=== PATIENT | male | born 1980 | race Two or more races ===

== ENCOUNTER 2023-10-16 19:26 | Inpatient (IN) | payer OTHER, SELFPAY ==
--- NOTE | 2023-10-16 19:29 | ECG_ITS ---
Test Reason : AFIBB Blood Pressure : / mmHG Vent. Rate : 123 BPM Atrial Rate : 000 BPM P-R Int : 000 ms QRS Dur : 080 ms QT Int : 296 ms P-R-T Axes : 000 027 125 degrees QTc Int : 423 ms Atrial fibrillation with rapid ventricular response Nonspecific T wave abnormality Abnormal ECG No previous ECGs available Referred By: Jesika Zavala Electronically Signed By:Chacho Anthony
[2023-10-16 20:09] VITALS: BP 126/77; PULSE 165; RESP 19; O2SAT 100; BMI 27.0
--- NOTE | 2023-10-16 20:17 | ECG_ITS ---
Test Reason : AFIB Blood Pressure : / mmHG Vent. Rate : 135 BPM Atrial Rate : 135 BPM P-R Int : 148 ms QRS Dur : 092 ms QT Int : 258 ms P-R-T Axes : 000 037 246 degrees QTc Int : 387 ms Afib with RVR Nonspecific T wave abnormality Abnormal ECG No previous ECGs available Referred By: Jesika Zavala Electronically Signed By:Chacho Anthony
--- NOTE | 2023-10-16 20:19 | ED_ITS ---
HPI - General Adult General Chief complaint: Arrhythmia/Palpitations Stated complaint: afib Time Seen by Provider: 10/16/23 20:09 Source: patient Mode of arrival: ambulatory Limitations: no limitations History of Present Illness HPI narrative: Patient comes to the emergency room complaining of palpitations, mild shortness of breath with ambulation. Patient states that for the last 20 years he has had intermittent atrial fibrillation. Patient does not take any medication. Patient denies any chest pain. Patient states that approximately 12 hours ago while he was driving, he started having palpitations. Patient states he was hoping they would go away but they continued throughout the day. Related Data Allergies Allergy/AdvReac Type Severity Reaction Status Date / Time No Known Allergies Allergy Verified 10/16/23 20:10 Review of Systems 2 Review of Systems: Constitutional : No Weight loss, No Fever, No Chills, No Night Sweats, No Fatigue, No Malaise ENT/Mouth : No Hearing loss, No Ear Pain, No Nasal Congestion, No Sinus Pain, No Hoarseness, No sore throat, No Rhinorrhea, No Swallowing Difficulty Eyes: No Eye Pain, No Swelling, No Redness, No Foreign Body, No Discharge, No Vision Changes Cardiovascular : No Chest Pain, complaining palpitations, mild shortness of breath Respiratory : No Cough, No Sputum, No Wheezing, No Smoke Exposure, No Dyspnea Gastrointestinal : No Nausea, No Vomiting, No Diarrhea, No Constipation, No abdominal Pain, No Hematochezia, No Melena Genitourinary : no irregular bleeding, No Dysuria, No Urinary Frequency, No Hematuria, No Urinary Incontinence, No Urgency, No Flank Pain, No Urinary Flow Changes, No Hesitancy Musculoskeletal : No joint pain, No Myalgias, No Joint Swelling Skin : No Skin Lesions, No rash Neuro : No Weakness, No Numbness, No Paresthesias, No Loss of Consciousness, No Dizziness, No Headache Psych : No Anxiety/Panic, No Depression, No SI/HI/AH/VH, No Social Issues, Heme/Lymph: No Bruising, No Bleeding,No Lymphadenopathy Endocrine : No Polyuria, No Polydipsia, No Temperature Intolerance [facility] Past Medical History Medical History (Updated 10/17/23 @ 00:49 by Jesika Zavala MD) Atrial fibrillation with RVR Social History Social History Alcohol intake: current Alcohol intake frequency: holidays/special occasions only Smoked in Last 30 Days: No Use of substances other than those prescribed or required for medical reasons: Yes Substance Use Type: Marijuana Substance Use Frequency: Occasionally Advance Directives: No Advance Directives Information Provided: Yes Do you have a plan to hurt others: No Plan Physical Exam ED Vital Signs: Vital Signs - 24 hr 10/16/23 20:09 10/16/23 20:22 10/16/23 20:26 Temperature Pulse Rate 165 H 135 H Pulse Rate [Monitor] 116 H Respiratory Rate 19 Blood Pressure 126/77 115/53 L Pulse Oximetry 100 Oxygen Delivery Method Room Air 10/16/23 20:26 10/16/23 22:24 10/16/23 22:32 Temperature 98.2 F 97.9 F Pulse Rate 112 H 119 H 74 Pulse Rate [Monitor] Respiratory Rate 10 L 12 Blood Pressure 122/57 L 103/66 98/60 Pulse Oximetry 95 96 Oxygen Delivery Method Room Air Room Air 10/17/23 00:28 Temperature Pulse Rate 94 Pulse Rate [Monitor] Respiratory Rate Blood Pressure 106/67 Pulse Oximetry Oxygen Delivery Method BMI result Body Mass Index 27.0 Const Other: Appearance: Alert. Oriented X3. No acute distress. Eyes: Pupils equal, round and reactive to light. ENT: Pharynx normal. Neck: Normal inspection. Neck supple. No lymph nodes noted. No crepitus CVS: Irregularly irregular heart rate in the 130s to 140s Respiratory: No respiratory distress. Breath sounds normal. No Wheezing. No rales Abdomen: Soft and nontender. No rigidity. No distention. Skin: Skin warm and dry. Normal skin color. Normal skin turgor. Extremities: No lower extremity edema. No Lacerations. No Rash Neuro: Oriented X 3. No motor deficit. No sensory deficit. Moving all extremities. No slurred speech. CN 2 through 12 grossly intact Psych: calm, cooperative, normal affect Medications Administered Generic Name Dose Route Start Last Admin Trade Name Freq PRN Reason Stop Dose Admin Diltiazem HCl 125 mg/ Sodium 125 mls @ 0 mls/hr 10/17/23 00:15 10/17/23 00:28 Chloride IVCONT 10 mg/hr .Q0M ERICA 10 mls/hr Administration Protocol Per Protocol Discontinued Medications Generic Name Dose Route Start Last Admin Trade Name Freq PRN Reason Stop Dose Admin Diltiazem HCl 10 mg 10/16/23 20:18 10/16/23 20:22 Diltiazem Hcl 50 Mg/10 Ml Vial IVPUSH 10/16/23 20:19 10 mg STAT STA Administration Diltiazem HCl 10 mg 10/16/23 21:50 10/16/23 22:24 Diltiazem Hcl 50 Mg/10 Ml Vial IVPUSH 10/16/23 21:51 10 mg STAT STA Administration Medical Decision Making Medical Decision Making MDM Narrative: - my interpretation of EKG: Atrial fibrillation with RVR, heart rate 123, no ST segment depression or elevation, no T-wave inversion, QTC 423 - my interpretation of labs: Hematology and chemistry within normal limits, troponin negative - patient was given a dose of Cardizem 10 mg push. Patient's heart rate improved from 130 to 90s. Patient asymptomatic, patient was ambulated in the ED, heart rate increased to 150. - Patient was given a 2nd bolus of Cardizem push. Again, attempted to ambulate the patient, heart rate increased to the 150s. D - current heart rate 150, patient was started on a Cardizem drip. Patient denies chest pain or shortness of breath. - I discussed the patient with Dr. Jimenes, patient being admitted. Patient agrees with plan - patient's [id number] 2 score is 0 Differential Diagnosis Differential Diagnoses: The differential diagnosis associated with the presentation includes ( atrial fibrillation, atrial flutter, SVT) Admission/Observation Consideration of admission/observation: Escalation of care including admission/observation considered Consult Healthcare Provider Management of the patient was discussed with: Hospitalist Lab Data MDM Lab Attestation statement: I reviewed the patient's lab results. 10/16/23 20:17 10/16/23 20:17 Labs: Lab Results 10/16/23 Range/Units 20:17 WBC 10.4 (4.8-10.8) X10*3/uL RBC 4.88 (4.60-5.80) X10*6/uL Hgb 14.3 (14.0-18.0) g/dl Hct 42.5 (42.0-52.0) % MCV 87.1 (80.0-98.0) fL MCH 29.3 (27.0-33.0) pg MCHC 33.6 (31.0-36.0) g/dl RDW 12.9 (11.0-16.0) % Plt Count 283 (160-400) X10*3/uL MPV 9.7 (9.4-12.4) fL Immature Gran % (Auto) 1.3 H (0.0-0.4) % Neut % (Auto) 61.7 (45-73) % Lymph % (Auto) 28.7 (20-40) % [place] % (Auto) 6.2 (2-11) % Eos % (Auto) 1.6 (0-4) % Baso % (Auto) 0.5 (0-2) % Lymph # (Auto) 3.0 (1.2-4.9) X10*3/uL [place] # (Auto) 0.6 (0.1-1.2) X10*3/uL Eos # (Auto) 0.2 (0.0-0.4) X10*3/uL Baso # (Auto) 0.1 (0.0-0.2) X10*3/uL Abs Immat Gran (auto) 0.14 H (0.00-0.03) X10*3/uL Absolute Neuts (auto) 6.4 (2.0-8.3) x10*3/uL Absolute Nucleated RBC 0.000 (0.0-0.012) X10*3/uL Nucleated RBC % (auto) 0.0 (0.0-0.2) /100WBC PT 11.8 (11.1-13.3) SEC INR 1.0 (0.9-1.1) Sodium 144 (135-145) mmol/L Potassium 3.6 (3.3-5.1) mmol/L Chloride 106 (96-108) mmol/L Carbon Dioxide 26 (22-29) mmol/L Anion Gap 16 (12-20) BUN 15 (9-16) mg/dL Creatinine 0.86 (0.5-1.4) mg/dL Estim Creat Clear Calc 127.7 Estimated GFR > 60 Random Glucose 82 (60-115) mg/dL Calcium 10.0 (8.4-10.2) mg/dL Total Bilirubin 0.2 (0.0-1.0) mg/dL AST 33 (5-37) U/L ALT 39 (0-40) U/L Alkaline Phosphatase 49 (39-117) U/L Troponin I High Sens 22.6 (<3.5-35.0) ng/L Total Protein 7.4 (6.5-8.0) g/dL Albumin 4.5 (3.5-5.0) g/dL Independent Interpretation I performed an independent interpretation of an: EKG Critical Care Time Critical Care Time Critical Care Time: Yes Total Critical Care Time: 75 Attestation: I have personally provided critical care time. Time includes review of lab data, radiology results, discussion with consultants, and monitoring for potential decompensation. Intervention performed as documented. Discharge Plan Discharge Clinical Impression: Atrial fibrillation with RVR Patient Disposition: Admitted As Inpatient Print Language: Turkmen
[2023-10-16 20:20] LABS: MANUAL DIFF FLAG NO
[2023-10-16 20:21] LABS: Basophils Absolute Auto 0.1 X10*3/uL (0.0-0.2); Basophils Percent Auto 0.5 % (0-2); Eosinophils Absolute Auto 0.2 X10*3/uL (0.0-0.4); Eosinophils Percent Auto 1.6 % (0-4); Hematocrit 42.5 % (42.0-52.0); Hemoglobin 14.3 g/dl (14.0-18.0); Imm Gran Abs Auto 0.14 X10*3/uL (0.00-0.03); Imm Gran Pct Auto 1.3 % (0.0-0.4); Lymphocytes Percent Auto 28.7 % (20-40); Mean Corpuscular HGB Conc 33.6 g/dl (31.0-36.0); Mean Corpuscular Hemoglobin 29.3 pg (27.0-33.0); Mean Corpuscular Volume 87.1 fL (80.0-98.0); Mean Platelet Volume 9.7 fL (9.4-12.4); Monocytes Absolute Auto 0.6 X10*3/uL (0.1-1.2); Monocytes Percent Auto 6.2 % (2-11); Neutrophils Absolute Auto 6.4 x10*3/uL (2.0-8.3); Neutrophils Percent Auto 61.7 % (45-73); Platelet Count 283 X10*3/uL (160-400); Red Blood Count 4.88 X10*6/uL (4.60-5.80); Red Cell Distribution Width 12.9 % (11.0-16.0); White Blood Count 10.4 X10*3/uL (4.8-10.8)
[2023-10-16 20:22] VITALS: BP 115/53; PULSE 135
[2023-10-16] MEDS: dilTIAZem HCL 50 MG/10 ML VIAL 10 MG IVPUSH ×2 (20:22→22:24)
[2023-10-16 20:26] VITALS: BP 122/57; PULSE 112; PULSE 116; RESP 10; TEMP 36.8; O2SAT 95
[2023-10-16 20:29] LABS: Prothrombin Time 11.8 SEC (11.1-13.3)
[2023-10-16 20:38] LABS: Alanine Aminotransferase 39 U/L (0-40); Albumin Level 4.5 g/dL (3.5-5.0); Alkaline Phosphatase 49 U/L (39-117); Anion Gap 16 (12-20); Aspartate Amino Transferase 33 U/L (5-37); Bilirubin Total 0.2 mg/dL (0.0-1.0); Blood Urea Nitrogen 15 mg/dL (9-16); Carbon Dioxide 26 mmol/L (22-29); Chloride 106 mmol/L (96-108); Creatinine Clr Calc Pharmacy 127.7; Estimated Glomerular Filt Rate > 60; Glucose Random 82 mg/dL (60-115); Potassium 3.6 mmol/L (3.3-5.1); Sodium 144 mmol/L (135-145); Total Protein 7.4 g/dL (6.5-8.0)
[2023-10-16 20:45] LABS: Troponin-I High Sensitivity 22.6 ng/L (<3.5-35.0)
[2023-10-16 22:24] VITALS: BP 103/66; PULSE 119
[2023-10-16 22:32] VITALS: BP 98/60; PULSE 74; RESP 12; TEMP 36.6; O2SAT 96
[2023-10-17] VITALS (9 sets, daily range): BP systolic 104–111; BP diastolic 65–71; PULSE 77–106; RESP 12–16; TEMP 35.5–36.9; O2SAT 95–99
--- NOTE | 2023-10-17 00:10 | P.HPHOSP_ITS ---
History of Present Illness Date of Service: 10/17/23 Chief Complaint: Palpitations This is a 43-year-old male with pertinent history of paroxysmal atrial fibrillation not on anticoagulation who presents to the emergency department for evaluation of palpitations. Patient states he started having palpitations 1 day prior to presentation while he was driving. It lasted for about 12 hours and was constant. Patient states he previously had an episode of palpitations about 13 years ago. He was evaluated by Cardiology and put on p.o. Cardizem and metoprolol. States he was taken off of medications and currently he has not on any rate or rhythm controlling medications. Not on anticoagulation. No fever, chills, chest discomfort, abdominal pain, changes in urinary or bowel habits. In the emergency department, patient was given IV diltiazem x2 and placed on IV diltiazem drip. Review of Systems 2 Cardiovascular: Cardiovascular: Reports rapid heart rate Respiratory: Respiratory: Reports no additional respiratory complaints Gastrointestinal: Gastrointestinal: Reports no additional gastrointestinal complaints Genitourinary: Genitourinary: Reports no additional male genitourinary complaints Musculoskeletal: Musculoskeletal: Reports no additional musculoskeletal complaints [facility] Medical History Atrial fibrillation with RVR Pertinent family history: No family history of early CAD Social History Alcohol intake: current Alcohol intake frequency: holidays/special occasions only Smoked in Last 30 Days: No Use of substances other than those prescribed or required for medical reasons: Yes Substance Use Type: Marijuana Substance Use Frequency: Occasionally Advance Directives: No Advance Directives Information Provided: Yes Do you have a plan to hurt others: No Plan Meds Allergies Allergy/AdvReac Type Severity Reaction Status Date / Time No Known Allergies Allergy Verified 10/16/23 20:10 Active Medications: Current Medications Acetaminophen (Acetaminophen 325 Mg Tablet) 650 mg PO Q6H PRN PRN Reason: Pain, Mild (Pain Scale 1-3) Diltiazem HCl 125 mg/ Sodium (Chloride) 125 mls @ 0 mls/hr IVCONT .Q0M ERICA; Protocol Melatonin (Melatonin 3 Mg Tablet) 6 mg PO BEDTIME PRN PRN Reason: Insomnia Ondansetron HCl (Ondansetron Hcl 4 Mg/2 Ml Vial) 4 mg IVPUSH Q8H PRN PRN Reason: Nausea and Vomiting Sodium Chloride (0.9 % Sodium Chloride Flush 3 Ml Syringe) 3 ml IVFLUSH QSHIFT ERICA Physical Exam 2 Vital Signs and Narrative: Vital Signs: Last Vital Signs Temp 97.9 F 10/16/23 22:32 Pulse 74 10/16/23 22:32 Resp 12 10/16/23 22:32 BP 98/60 10/16/23 22:32 Pulse Ox 96 10/16/23 22:32 O2 Del Method Room Air 10/16/23 22:32 BMI result Body Mass Index 27.0 Middle-aged male lying in bed in no distress Neck supple, no JVD Irregularly irregular, S1-S2 heard Regular breath sounds bilaterally, no wheezing or crackles appreciated Abdomen soft nontender, no guarding, no rigidity Patient is awake, alert and oriented to self, place, time and person ; no focal motor deficit Psych: Normal mood No pedal edema Results Labs 10/17/23 04:05 10/17/23 04:05 Labs: Laboratory Results - last 24 hr 10/16/23 20:17 MCV 87.1 MCH 29.3 MCHC 33.6 RDW 12.9 Plt Count 283 MPV 9.7 Immature Gran % (Auto) 1.3 H Neut % (Auto) 61.7 Lymph % (Auto) 28.7 [place] % (Auto) 6.2 Eos % (Auto) 1.6 Baso % (Auto) 0.5 Lymph # (Auto) 3.0 [place] # (Auto) 0.6 Eos # (Auto) 0.2 Baso # (Auto) 0.1 Abs Immat Gran (auto) 0.14 H Absolute Neuts (auto) 6.4 Absolute Nucleated RBC 0.000 Nucleated RBC % (auto) 0.0 PT 11.8 INR 1.0 Anion Gap 16 Estim Creat Clear Calc 127.7 Estimated GFR > 60 Random Glucose 82 Calcium 10.0 Total Bilirubin 0.2 AST 33 ALT 39 Alkaline Phosphatase 49 Troponin I High Sens 22.6 Total Protein 7.4 Albumin 4.5 Assessment and Plan (1) Atrial fibrillation with RVR: Status: Acute Plan This is a 43-year-old male with pertinent history of paroxysmal atrial fibrillation not on anticoagulation who presents to the emergency department for evaluation of palpitations. #. AFib with RVR: Will admit patient with cardiac monitoring. On IV diltiazem drip. Will initiate p.o. diltiazem. Obtaining TSH and consulted Cardiology. Chads Vasc score 0 DVT prophylaxis: Lovenox Full code Admit as inpatient and will require two night minimum hospital stay for IV diltiazem need, close monitoring of heart rate (as above), which is not possible in a lesser acute setting. Specialist consult pending Quality Stroke Does the patient have a stroke diagnosis?: No VTE Prior VTE?: No VTE Risk Level:: Medical - moderate - high VTE Device Contraindication: Treatment Not Indicated VTE Drug Contraindication: N/A - Med Ordered
[2023-10-17] MEDS: dilTIAZem HCL 125 MG in 0.9 % Sodium Chloride 100 ML 10 MG IVCONT (00:28)
[2023-10-17 04:28] LABS: MANUAL DIFF FLAG NO
[2023-10-17 04:29] LABS: Basophils Percent Auto 0.4 % (0-2); Eosinophils Absolute Auto 0.2 X10*3/uL (0.0-0.4); Eosinophils Percent Auto 2.1 % (0-4); Hematocrit 39.5 % (42.0-52.0); Hemoglobin 13.2 g/dl (14.0-18.0); Imm Gran Abs Auto 0.15 X10*3/uL (0.00-0.03); Imm Gran Pct Auto 1.5 % (0.0-0.4); Lymphocytes Absolute Auto 2.2 X10*3/uL (1.2-4.9); Lymphocytes Percent Auto 21.7 % (20-40); Mean Corpuscular HGB Conc 33.4 g/dl (31.0-36.0); Mean Corpuscular Hemoglobin 29.1 pg (27.0-33.0); Mean Corpuscular Volume 87.2 fL (80.0-98.0); Mean Platelet Volume 9.8 fL (9.4-12.4); Monocytes Absolute Auto 0.7 X10*3/uL (0.1-1.2); Monocytes Percent Auto 6.8 % (2-11); Neutrophils Absolute Auto 6.9 x10*3/uL (2.0-8.3); Neutrophils Percent Auto 67.5 % (45-73); Platelet Count 257 X10*3/uL (160-400); Red Blood Count 4.53 X10*6/uL (4.60-5.80); Red Cell Distribution Width 13.1 % (11.0-16.0); White Blood Count 10.1 X10*3/uL (4.8-10.8)
[2023-10-17 04:43] LABS: Anion Gap 15 (12-20); Blood Urea Nitrogen 14 mg/dL (9-16); Calcium 9.2 mg/dL (8.4-10.2); Carbon Dioxide 26 mmol/L (22-29); Chloride 105 mmol/L (96-108); Creatinine Clr Calc Pharmacy 130.7; Estimated Glomerular Filt Rate > 60; Glucose Random 113 mg/dL (60-115); Sodium 142 mmol/L (135-145)
[2023-10-17] MEDS: dilTIAZem HCL 30 MG TABLET PO ×2 (06:33→08:56)
[2023-10-17] MEDS: Enoxaparin Sodium 40 MG/0.4 ML SYRINGE SUBCUT (06:35)
[2023-10-17] MEDS: Acetaminophen 325 MG TABLET 650 MG PO (06:41)
[2023-10-17 07:22] LABS: Thyroid Stimulating Hormone 1.09 uIU/mL (0.32-4.0)
--- NOTE | 2023-10-17 08:54 | PHA.MEDREC ---
Pharmacy Consult ? Medication Reconciliation Pharmacy has completed the medication reconciliation. Spoke to patient at bedside
[2023-10-17] MEDS: 0.9 % Sodium Chloride Flush 3 ML SYRINGE IVFLUSH (08:57)
--- NOTE | 2023-10-17 09:02 | PC.NURSE ---
this RN resumed care of pt at 0700. a&ox4. vss and up to date. 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 HR increases while conversating. pt denies any chest pain but verbalizes slight palpitations throughout chest wall. medication administered per provider order. 20gIV in right AC remains patent/intact. pt denies feeling sob. resting comfortably on RA. respirations even and unlabored. pt awaiting cardiac consult. plan of care ongoing. call weeks placed within reach.
--- NOTE | 2023-10-17 09:57 | PC.NURSE ---
pt having cardiology consult completed at this time. admitting provider bedside as well. plan of care ongoing.
--- NOTE | 2023-10-17 10:16 | PM.EVENT ---
Event Note Date of Service: 10/17/23 Event Note: Admitted this morning. pt seen and examined and plan discussed with cardiology. 43 with PAF, most of the time assymptomatic. He has had this in the past. Presently with variable rate. Plan: Metoprolol for rate control, starting eliquis and possible cardioversion tomorrow Time Spent With Patient Time: Total time managing care of this patient today ____ minutes.
--- NOTE | 2023-10-17 10:49 | P.CONCA_ITS ---
History of Present Illness History of Present Illness Date of Service: 10/17/23 Requesting physician: Jovanny Rios Chief complaint: Palpitations, PAF Narrative: 43-year-old gentleman who is here for palpitations and is noticed to be in AFib with RVR. Has known history of atrial fibrillation from age 21 when he was in [place]. He said he suddenly had palpitations when he was 21 years old and went to a doctor who told him that he has atrial fibrillation. This was self- limiting. He had another episode a year later and then again an episode a couple of years later. He was seen by Dr. Causey at [facility] in 2011. He was on metoprolol at that time. He said his last episode was in 2020. He is now presenting because he started having palpitations after dropping his children to school. He said he was feeling quite anxious and came to the ER and was noticed to be in AFib with RVR. He was started on a Cardizem drip. He was previously on metoprolol but he has stopped using that. He is only using montelukast and Zyrtec. Denying chest pain or shortness of breath. No other complaints. [facility] Past Medical History Medical History Atrial fibrillation with RVR Social History Social History Alcohol intake: current Alcohol intake frequency: holidays/special occasions only Patient Tobacco Use Status: Never used Tobacco Smoked in Last 30 Days: No Use of substances other than those prescribed or required for medical reasons: Yes Substance Use Type: Marijuana Substance Use Frequency: Occasionally Advance Directives: No Advance Directives Information Provided: Yes Do you have a plan to hurt others: No Plan Nutrition Risks: No Nutritional Risk Meds Allergies Allergy/AdvReac Type Severity Reaction Status Date / Time No Known Allergies Allergy Verified 10/16/23 20:10 Active Medications: Current Medications Acetaminophen (Acetaminophen 325 Mg Tablet) 650 mg PO Q6H PRN PRN Reason: Pain, Mild (Pain Scale 1-3) Last Admin: 10/17/23 06:41 Dose: 650 mg Apixaban (Apixaban 5 Mg Tablet) 5 mg PO BID ERICA Diltiazem HCl 125 mg/ Sodium (Chloride) 125 mls @ 0 mls/hr IVCONT .Q0M [facility]; Protocol Last Titration: 10/17/23 06:33 Dose: 0 mg/hr, 0 mls/hr Melatonin (Melatonin 3 Mg Tablet) 6 mg PO BEDTIME PRN PRN Reason: Insomnia Metoprolol Tartrate (Metoprolol Tartrate 25 Mg Tablet) 25 mg PO TID [facility]; Protocol Ondansetron HCl (Ondansetron Hcl 4 Mg/2 Ml Vial) 4 mg IVPUSH Q8H PRN PRN Reason: Nausea and Vomiting Sodium Chloride (0.9 % Sodium Chloride Flush 3 Ml Syringe) 3 ml IVFLUSH QSHIFT [facility] Last Admin: 10/17/23 08:57 Dose: 3 ml Home Medications ?Medication ?Instructions ?Recorded ?Confirmed ?Last Taken ?Type cetirizine 10 mg tablet 10 mg PO DAILY 10/17/23 10/17/23 10/16/23 History montelukast 10 mg tablet 10 mg PO DAILY 10/17/23 10/17/23 10/16/23 History Physical Exam 2 Vital Signs: Vital Signs: Last Vital Signs Temp 97.9 F 10/16/23 22:32 Pulse 106 H 10/17/23 08:56 Resp 16 10/17/23 07:41 BP 105/69 10/17/23 07:41 Pulse Ox 95 10/17/23 07:41 O2 Del Method Room Air 10/17/23 07:41 BMI result Body Mass Index 27.0 GENERAL APPEARANCE: in no acute distress, pleasant. NECK: no carotid bruit, no jugular venous distention. SKIN: no suspicious lesions, warm and dry. HEART: no murmurs, irregular rate and rhythm. Tachycardia. LUNGS: clear to auscultation bilaterally. ABDOMEN: soft, nontender. EXTREMITIES: no edema. PERIPHERAL PULSES: equal. NEUROLOGIC: No gross deficits, AAO X 3 Objective Labs and Meds 10/17/23 04:05 10/17/23 04:05 Lab results: Laboratory Results - last 24 hr 10/16/23 10/17/23 20:17 04:05 WBC 10.4 10.1 RBC 4.88 4.53 L Hgb 14.3 13.2 L Hct 42.5 39.5 L MCV 87.1 87.2 MCH 29.3 29.1 MCHC 33.6 33.4 RDW 12.9 13.1 Plt Count 283 257 MPV 9.7 9.8 Immature Gran % (Auto) 1.3 H 1.5 H Neut % (Auto) 61.7 67.5 Lymph % (Auto) 28.7 21.7 [place] % (Auto) 6.2 6.8 Eos % (Auto) 1.6 2.1 Baso % (Auto) 0.5 0.4 Lymph # (Auto) 3.0 2.2 [place] # (Auto) 0.6 0.7 Eos # (Auto) 0.2 0.2 Baso # (Auto) 0.1 0.0 Abs Immat Gran (auto) 0.14 H 0.15 H Absolute Neuts (auto) 6.4 6.9 Absolute Nucleated RBC 0.000 0.000 Nucleated RBC % (auto) 0.0 0.0 PT 11.8 INR 1.0 Sodium 144 142 Potassium 3.6 4.0 Chloride 106 105 Carbon Dioxide 26 26 Anion Gap 16 15 BUN 15 14 Creatinine 0.86 0.84 Estim Creat Clear Calc 127.7 130.7 Estimated GFR > 60 > 60 Random Glucose 82 113 Calcium 10.0 9.2 D Total Bilirubin 0.2 AST 33 ALT 39 Alkaline Phosphatase 49 Troponin I High Sens 22.6 Total Protein 7.4 Albumin 4.5 TSH 1.09 Assessment and Plan (1) Atrial fibrillation with RVR: Status: Acute Plan Pleasant 43 year gentleman with known history of paroxysmal atrial fibrillation not on any medication presenting with palpitations and atrial fibrillation with rapid ventricular response. He said his symptoms started yesterday but he is currently with heart rate of 120 and has no symptoms. Unclear how long he has been in atrial fibrillation. Starting him on anticoagulation with potential plan to do MARLY cardioversion tomorrow. We will start oral metoprolol and see if he converts on his own. If he does not then we will pursue MARLY cardioversion and leave him on anticoagulation for 6 weeks. I have discussed with him about pill in the pocket approach with flecainide which can be a possibility or he can be started on regular flecainide. We will discuss this after he converts either spontaneously or with cardioversion. Stop the oral Cardizem and started him on metoprolol 25 mg t.i.d.. Thank you for allowing me to participate in the care of your patient. Please feel free to contact me if you have any questions. Procedures Date of Service Date of Service: 10/17/23
[2023-10-17] MEDS: Apixaban 5 MG TABLET PO ×2 (10:58→21:00)
[2023-10-17] MEDS: Metoprolol Tartrate 25 MG TABLET PO ×3 (10:58→21:00)
--- NOTE | 2023-10-17 10:59 | PC.NURSE ---
medication administered per provider order.
--- NOTE | 2023-10-17 14:38 | PC.NURSE ---
medication administered per provider order. vss remain stable - slightly hypotensive. pt remains afib on the monitor - HR between 100-110 bpm at rest. pt verbalizes intermittent palpitation. denies chest pain/sob. respirations even and unlabored. pt continues to wait for bed assignment at this time. plan of care ongoing.
--- NOTE | 2023-10-17 16:16 | MHC.CM.PN ---
CM attempted to see pt in ED, he was sound asleep, will approach later.
--- NOTE | 2023-10-17 17:00 | PC.NURSE ---
vss and up to date. afib on the monitor - HR between 80-95bpm. pt denies chest pain/palpitations post medication administration. respirations remain even and unlabored. pt awaiting bed assignment. call weeks placed within reach.
--- NOTE | 2023-10-17 19:05 | PC.NURSE ---
pt ambulated independently to bathroom, no apparent distress noted or verbalized at this time
--- NOTE | 2023-10-17 19:36 | PC.NURSE ---
pt sitting at bedside eating dinner with visitor. no complaints or needs expressed at this time. pt aware of plan of care
--- NOTE | 2023-10-17 19:52 | PC.NURSE ---
diego not currently running, on hold from previous shift. still at bedside if needed
--- NOTE | 2023-10-17 21:04 | PC.NURSE ---
pt medicated per MAR. denies CP, SOB, or palpitations at this time
--- NOTE | 2023-10-17 23:20 | PC.NURSE ---
pt resting quietly with eyes closed, no apparent distress noted. breathing even and unlabored. pt now in NSR
[2023-10-18] MEDS: 0.9 % Sodium Chloride Flush 3 ML SYRINGE IVFLUSH ×3 (00:03→14:51)
--- NOTE | 2023-10-18 00:10 | PC.NURSE ---
per MD Brock, no EKG at 0000
--- NOTE | 2023-10-18 02:52 | MHC.EDTECH ---
pt up to bathroom. VSS pt placed on monitor when he returned to room
[2023-10-18 03:10] VITALS: BP 115/60; PULSE 84; RESP 18; TEMP 36.6; O2SAT 97
[2023-10-18 05:56] VITALS: BP 110/70; PULSE 76; RESP 16; TEMP 36.6; O2SAT 98
--- NOTE | 2023-10-18 07:00 | PC.NURSE ---
assumed care of pt at 0700, pt resting quietly, vss, sinus rhythm on monitor, Cardizem on hold per prior RN. pt pending bed assignment and cardiology consult. no new orders at this time.
[2023-10-18 08:31] VITALS: BP 121/66; PULSE 90; RESP 18; TEMP 36.1; O2SAT 97; BMI 27.4
[2023-10-18 08:34] VITALS: BMI 27.4
[2023-10-18 09:09] VITALS: BP 121/86; PULSE 90
[2023-10-18] MEDS: Apixaban 5 MG TABLET PO (09:09)
[2023-10-18] MEDS: Metoprolol Tartrate 25 MG TABLET PO ×2 (09:09→14:49)
--- NOTE | 2023-10-18 09:21 | ECG_ITS ---
Test Reason : converted nsr Blood Pressure : / mmHG Vent. Rate : 076 BPM Atrial Rate : 076 BPM P-R Int : 150 ms QRS Dur : 082 ms QT Int : 340 ms P-R-T Axes : 061 044 045 degrees QTc Int : 382 ms Normal sinus rhythm Normal ECG When compared with ECG of 16-OCT-2023 20:17, Sinus rhythm has replaced Atrial fibrillation Vent. rate has decreased BY 47 BPM Referred By: Jovanny Rios Electronically Signed By:Chacho Anthony
--- NOTE | 2023-10-18 10:30 | MHC.CM.PN ---
Addendum entered by Vanda Hector 10/18/23 10:42: Pt.'s PCP is Karthik Harris Original Note: Pt is independent, has transport home, completed HCP here and was given info on PCP's. DC plan is home, self care.
[2023-10-18 10:56] VITALS: BP 115/68; PULSE 81; RESP 18; TEMP 36.9; O2SAT 99
--- NOTE | 2023-10-18 11:26 | PM.PNCARD ---
Subjective Subjective Date of Service: 10/18/23 Interval history: Seen and examined at bedside. He is back in sinus rhythm. He is feeling back to normal at this point. Physical Exam Vital Signs: Last Vital Signs Temp 98.4 F 10/18/23 10:56 Pulse 81 10/18/23 10:56 Resp 18 10/18/23 10:56 BP 115/68 10/18/23 10:56 Pulse Ox 99 10/18/23 10:56 O2 Del Method Room Air 10/18/23 10:56 BMI result Body Mass Index 27.4 GENERAL APPEARANCE: in no acute distress, pleasant. NECK: no carotid bruit, no jugular venous distention. SKIN: no suspicious lesions, warm and dry. HEART: no murmurs, regular rate and rhythm. LUNGS: clear to auscultation bilaterally. ABDOMEN: soft, nontender. EXTREMITIES: no edema. PERIPHERAL PULSES: equal. NEUROLOGIC: No gross deficits, AAO X 3 Objective Labs and Meds 10/17/23 04:05 10/17/23 04:05 Progress Note: A&P Assessment and plan (1) PAF (paroxysmal atrial fibrillation): Status: Acute Plan Pleasant 43 year gentleman presenting for palpitations and atrial fibrillation with rapid ventricular response. He was started on metoprolol 25 mg 3 times a day and apixaban for potential MARLY cardioversion today but he has converted back to sinus rhythm. Given low CHADS-VASc score he does not need Eliquis anymore. It can be discontinued. I would detailed discussion with the patient and his about management plan going forward. He should continue metoprolol 25 mg twice a day. We discussed about pill in the pocket approach to use flecainide as needed if he has prolonged episode of atrial fibrillation. Based on his weight he should be taking 300 mg of flecainide as a single dose in case he develops prolonged episode of atrial fibrillation. If this strategy fails then we will put him on 50 mg twice a day dosing. He will follow-up with us in our office. He should have echocardiography before discharge. Thank you for allowing me to participate in the care of your patient. Please feel free to contact me if you have any questions. Time Spent With Patient Time: Total time managing care of this patient today ____ minutes. Progress Note: Quality Stroke Does the patient have a stroke diagnosis?: No Procedures Date of Service Date of Service: 10/18/23
--- NOTE | 2023-10-18 11:48 | P.DS_ITS ---
DS: Providers Provider Date of Service: 10/18/23 Date of admission: 10/17/23 00:08 Primary care physician: Unknown Physician Consults: 10/17/23 05:48 Consult to Cardiology Routine Consulting [place] [facility] [place] [facility] Reason for consultation: afib with rvr Has provider been notified: Yes DS: Diagnosis Discharge Diagnosis (1) PAF (paroxysmal atrial fibrillation): Status: Acute DS: Summary Hospital Course Hospital Course: admission hpi Chief Complaint: Palpitations This is a 43-year-old male with pertinent history of paroxysmal atrial fibrillation not on anticoagulation who presents to the emergency department for evaluation of palpitations. Patient states he started having palpitations 1 day prior to presentation while he was driving. It lasted for about 12 hours and was constant. Patient states he previously had an episode of palpitations about 13 years ago. He was evaluated by Cardiology and put on p.o. Cardizem and metoprolol. States he was taken off of medications and currently he has not on any rate or rhythm controlling medications. Not on anticoagulation. No fever, chills, chest discomfort, abdominal pain, changes in urinary or bowel habits. In the emergency department, patient was given IV diltiazem x2 and placed on IV diltiazem drip. hospital course: Patient presented with palpitations and found to have AFIB with RVR, he denies excessive alcohol use, he has historyof Paroxysmal AFIB. He was given IV cardizem, admitted and started on oral metoprolol. He was evaluated by cardiology and advised to continue oral metoprolol 25 mg bid. He was given Eliquis in case he would need cardioversion. He converted to sinus rhythm and will be discharged with Flacainide 300 mg pill on pocket aproach Time Attestation Discharge Coordination Time (in mins): 35 Quality: Safe Use of Opioids Does Pt have an Active Cancer Diagnosis on the Problem List?: No Quality: Stroke Does the patient have a stroke diagnosis?: No Physical Exam Vital Signs: Vital Signs: Last Vital Signs Temp 98.4 F 10/18/23 10:56 Pulse 81 10/18/23 10:56 Resp 18 10/18/23 10:56 BP 115/68 10/18/23 10:56 Pulse Ox 99 10/18/23 10:56 O2 Del Method Room Air 10/18/23 10:56 BMI result Body Mass Index 27.4 General: AO X 3, no acute distress Resp: CTA bilateral CVS: S1,S2,RRR GI: +BS, NT, no distention Skin: No rash Neuro: motor grossly intact Psych: appropriate affect Discharge Plan Discharge Anticipated Discharge Date/Time: 10/18/23 11:39 Patient Disposition: Home, Self-Care Discharge Diagnosis: Paroxysmal AFIB Referrals: Physician,Unknown J [Physician] - 1 Week Discharge Medications: New metoprolol tartrate 25 mg Tablet 25 mg PO BID Qty: 180 0RF Protocol: Hold for SBP/HR < HOLD for SBP < : 90 HOLD for HR < : 60 flecainide 150 mg tablet 300 mg PO ONCE Qty: 90 0RF Continued cetirizine 10 mg tablet 10 mg PO DAILY montelukast 10 mg tablet 10 mg PO DAILY Discharge Orders: Discharge Order (Routine); Ordered 10/18/23 Ordered By: Jovanny Rios Diet: Advance to usual diet Activity on Discharge: As tolerated Stand Alone Forms: Patient Portal Discharge page Print Language: Slovenian Care Plan Goals: Control of atrial fibrilation Health Concerns: Atrial Fib Plan of Treatment: Take Metoprolol 25 mg twice daily take Flecainide 300 mg if you have palpitation due to AFIB Follow up with Dr. Anthony Assessment: see above Discharge Date/Time: 10/18/23 15:47
--- NOTE | 2023-10-18 14:12 | MHC.CM.PN ---
Pt has been medically cleared for DC, he will go home via family transport, DC plan is self care.
[2023-10-18 14:49] VITALS: BP 116/69; PULSE 83
--- NOTE | 2023-10-18 17:00 | CA_ITS ---
Transthoracic Echocardiogram Patient (Last, First, Middle): Daniel Lizama, Gender: Male Date of : 1980 Age: 43 Procedure Date: 10/18/2023 Procedure Type: Transthoracic Echocardiogram Location: [facility] – [place], [place] Height: 185.42 cm Weight: 93.9 kg BSA: 2.18 m2 Heart Rate: bpm BP: 115 / 68 mmHg [employer]: Referring MD: Jovanny Rios MD Symptoms: AFIB Study Quality: Good ECG Rhythm: Sinus Conclusions: - Normal left ventricular size and systolic function. There is mildly increased left ventricular wall thickness. The visually estimated ejection fraction is between 55-60%. There is no evidence of regional wall motion abnormalities. Diastolic function is normal for age. - Normal right ventricular cavity size and systolic function. - The left atrium is normal in size. Findings Left Ventricle Normal left ventricular size and systolic function. There is mildly increased left ventricular wall thickness. The visually estimated ejection fraction is between 55-60%. There is no evidence of regional wall motion abnormalities. Diastolic function is normal for age. Right Ventricle Normal right ventricular cavity size and systolic function. Atria The left atrium is normal in size. Aortic Valve Normal aortic valve structure and function. There is no aortic valve stenosis. There is no aortic valve regurgitation. Mitral Valve Normal mitral valve structure and function. There is no mitral valve regurgitation. There is no mitral valve stenosis. Pulmonic Valve The pulmonic valve is likely normal. Tricuspid Valve Normal tricuspid valve structure. There is no tricuspid valve regurgitation. Normal right atrial pressure. There is no evidence of pulmonary hypertension. Great Vessels All visible segments of the aorta are normal in size. The visualized portions of the pulmonary artery and branches are normal. Venous The inferior vena cava is normal in size and collapses greater than 50% with inspiration. Pericardium/Pleural There is no evidence of pericardial effusion. Prior Study Comparison No prior study available for comparison. Measurements 2D Linear Measurements IVSd: 1.27 0.6-0.9/0.6-1.0 cm LVIDd: 4.64 3.9-5.3/4.2-5.9 cm LVIDd Index: 2.13 2.4-3.2/2.2-3.1 cm/m2 LVIDs: 2.72 2.0-3.6 cm LVPWd: 1.21 0.7-1.1 cm Ao Root: 3.20 2.1-3.5 cm LA Diam: 3.60 2.7-3.8/3.0-4.0 cm LAIDs Index: 1.65 1.5-2.3 cm/m2 LV Mass: 271.49 67-162/88-224 g LV Mass Index: 124.54 43-95/49-115 g/m2 LVOT Diam: 2.20 3.0+(-)1.3 cm Mitral Valve MV Pk E: 0.77 MV PK A: 0.54 MV Decel Time: 170.00 E/A: 1.40 E'Lateral: 14.60 E'Medial: 7.62 E/E' Med: 10.10 E/E' Lat: 5.30 PHT: 50.00 MVA PHT: 4.40 Decel [place]: 4.54 Aortic Valve AoV Pk Kevin: 1.15 AoV Mn Kevin: 0.76 AoV VTI: 0.22 AoV Pk Grad: 5.00 Aov Mn Grad: 3.00 SHENA Cont.VTI: 3.00 LVOT LVOT Pk Kevin: 0.97 LVOT Mn Kevin: 0.62 LVOT VTI: 0.17 LVOT Pk Grad: 4.00 LVOT Mn Grad: 2.00 LVOT Diam: 2.20 LVOT Area: 3.80 Diastolic Function MV Pk E: 0.77 MV Pk A: 0.54 E/A: 1.40 E'Medial: 7.62 E/E' Med: 10.10 E' Laterial: 14.60 E/E' Lat: 5.30 Right Ventricle TAPSE (mm): 26.00 TVS' Kevin: 13.00 Tricuspid Valve TR Pk Kevin: 2.42 TR Pk Grad: 23.00 RA Press: 3.00 RVSP: 26.00 Great Vessels Aorta Ao Root-2D: 3.20 2.0-3.7 cm Ao Asc: 2.90 2.1-3.4 cm Pulmonary Valve PV Pk Kevin: 1.10 Peak PV Grad: 5.00 Updated in Other Vendor System with Status of Final Chacho Anthony MD electronically signed on 10/18/2023 2:39:01 PM with status of Final
== END 2023-10-18 15:47 | disposition home or self-care (01) | DRG 201 ==
LOC: HO.ED 10-17 00:49 → HO.EDOVER 10-17 01:33 → HO.IMC 10-18 07:41
PROVIDERS: Admitting Provider Student in an Organized Health Care Education/Training Program; Emergency Provider Emergency Medicine; PCP Internal Medicine; Visit Provider Internal Medicine
DX: I48.0 Paroxysmal atrial fibrillation (principal); Z79.899 Other long term (current) drug therapy
CPT/HCPCS: 36415; 80048; 80053; 84443; 84484; 85025; 85610; 93005; 93306; 99285; J1650; Q9957

== ENCOUNTER → 2023-10-16 19:29 | Outpatient (BNV) | payer OTHER, SELFPAY | PROVIDERS: Admitting Provider Student in an Organized Health Care Education/Training Program; Emergency Provider Emergency Medicine; Visit Provider Internal Medicine Cardiovascular Disease | DX: I48.91 Unspecified atrial fibrillation (principal); R94.31 Abnormal electrocardiogram [ECG] [EKG] | CPT/HCPCS: 93010 ==

== ENCOUNTER 2023-10-17 00:08 | Outpatient (BNV) | payer OTHER, SELFPAY | END 2023-10-18 09:21 | PROVIDERS: Admitting Provider Student in an Organized Health Care Education/Training Program; Emergency Provider Emergency Medicine; Visit Provider Internal Medicine Cardiovascular Disease | DX: I48.91 Unspecified atrial fibrillation (principal) | CPT/HCPCS: 93010; 93306 ==

== ENCOUNTER → 2023-10-17 00:08 | Outpatient (BNV) | payer OTHER, SELFPAY | PROVIDERS: Admitting Provider Student in an Organized Health Care Education/Training Program; Emergency Provider Emergency Medicine; Visit Provider Student in an Organized Health Care Education/Training Program | DX: I48.0 Paroxysmal atrial fibrillation (principal) | CPT/HCPCS: 99222; 99239; 99499 ==

== ENCOUNTER → 2023-10-17 00:08 | Outpatient (BNV) | payer OTHER, SELFPAY | PROVIDERS: Admitting Provider Student in an Organized Health Care Education/Training Program; Emergency Provider Emergency Medicine; Visit Provider Internal Medicine Cardiovascular Disease | DX: I48.91 Unspecified atrial fibrillation (principal) | CPT/HCPCS: 99223; 99233 ==